=== PATIENT | female | born 1970 | race Caucasian/White ===

== ENCOUNTER 2024-08-06 18:46 | Emergency (ER) | payer BC, SELFPAY ==
[2024-08-06 18:50] VITALS: BP 130/89
[2024-08-06 19:15] LABS: HCG, Serum Qualitative Screen Negative
[2024-08-06 19:19] LABS: ALT (SGPT) 35 U/L (0-35); AST (SGOT) 37 U/L (14-36); Albumin 4.9 g/dl (3.5-5.0); Alkaline Phosphatase 78 U/L (38-126); Blood Urea Nitrogen 29 mg/dl (7-17); Calcium 9.6 mg/dl (8.4-10.2); Carbon Dioxide 27 mmol/L (22-30); Chloride 104 mmol/L (98-107); Glucose 107 mg/dl (70-99); Potassium 4.4 mmol/L (3.5-5.1); Sodium 141 mmol/L (135-145); Total Bilirubin 0.3 mg/dl (0.2-1.3); Total Protein 7.4 g/dl (6.3-8.2); eGFR > 60.00
[2024-08-06 19:21] LABS: % Basophils 0.5 % (0-2); % Eosinophils 1.5 % (0-6); % Immature Granulocytes 0.5 % (0-0.5); % Monocytes 6.6 % (1.7-9.3); % Neutrophils 65.9 % (42.2-75.2); Absolute Eosinophils 0.1 10^3/uL (0-0.7); Absolute Lymphocytes 1.5 10^3/uL (1.2-3.4); Absolute Monocytes 0.4 10^3/uL (0.1-0.6); Absolute Neutrophils 3.9 10^3/uL (1.4-6.5); Hematocrit 42.5 % (37.0-47.0); Hemoglobin 14.3 g/dL (12.0-16.0); Mean Corp Hgb Conc. 33.6 g/dL (33.0-37.0); Mean Corpuscular Hgb 29.9 pg (27.0-31.0); Mean Corpuscular Volume 88.7 fL (81.0-99.0); Mean Platelet Volume 10.8 fL (7.4-10.4); Nucleated Red Blood Cells % 0 %; Platelet Count 184 10^3/uL (130-400); Red Blood Cell Count 4.79 10^6/uL (4.20-5.40); Red Cell Dist. Width 13.5 % (11.5-14.5); White Blood Cell Count 5.9 10^3/uL (4.8-10.8)
[2024-08-06 20:35] VITALS: BMI 25.0
[2024-08-06 20:36] VITALS: BP 107/83
--- NOTE | 2024-08-06 21:02 | ED.GENMED ---
History of Present Illness
General
Chief Complaint: Vaginal Bleeding
Source: patient and spouse
Time Seen by Provider: 08/06/24 20:28
History of Present Illness
History of Present Illness:
53-year-old female who presents with bleeding. She states she has not had a period in 3 years and prior to that she had had an ablation so had only minimal periods. Today she became nervous when she started to bleed. She states it is a little
heavier than a normal period but states it is under control. She has a little bit of cramping but otherwise no pain. No fevers. No other symptoms states she just became concerned.
Past History
Past History
ED Past Medical History: Hypothyroidism
ED Past Surgical History: Appendectomy, and Orthopedic
Phy Exam
Physical Exam
Physical Exam:
CONSTITUTIONAL Patient alert and oriented to person, place and time. Well-appearing. Vital signs reviewed.
HEAD atraumatic, normocephalic.
EYES eyelids normal to inspection, Extraocular muscles intact, Conjunctiva normal, Sclera normal.
NECK normal range of motion, Trachea midline, no jugular venous distention.
RESPIRATORY CHEST No respiratory distress noted, Chest expansion equal
ABDOMEN minimal suprapubic tenderness, bowel sounds normal. No distention.
BACK normal inspection, no obvious deformities
UPPER EXTREMITY range of motion normal, Motor strength normal, no cyanosis, no edema.
LOWER EXTREMITY range of motion normal, Motor strength normal, no cyanosis, no edema.
NEURO Speech normal, No focal motor deficits, Onofre coma scale 15, Memory normal, Cranial Nerves intact to screening exam.
SKIN skin warm, dry, and normal in color.
PSYCHIATRIC patient oriented to person place and time, Normal affect.
Course
Orders/Labs/Results
Orders:
Orders
08/06/24 18:54
Test Result ONCE
08/06/24 18:56
US Pelvis W Transvag Combined Urgent
Reason For Exam: vaginal bleeding, PMB
08/06/24 18:58
Type+Screen Urgent
Beta Hcg Serum Qualitative Screen [HCG, Serum Qualitative Screen] Urgent
Complete Blood Count/With Diff Urgent
Comprehensive Metabolic Panel Urgent
Abnormal Lab Results
08/06/24
18:58
MPV 10.8 H fL
(7.4-10.4)
BUN 29 H mg/dl
(7-17)
Glucose 107 H mg/dl
(70-99)
AST 37 H U/L
(14-36)
08/06/24 18:58
08/06/24 18:58
Vital Signs
Initial and Last Documented VS:
Initial Vital Signs
Temp Pulse Resp BP Pulse Ox
98.5 F 75 18 130/89 98
08/06/24 18:50 08/06/24 18:50 08/06/24 18:50 08/06/24 18:50 08/06/24 18:50
Last Documented Vital Signs
Temp Pulse Resp BP Pulse Ox
98.5 F 64 18 107/83 98
08/06/24 18:50 08/06/24 20:35 08/06/24 20:35 08/06/24 20:36 08/06/24 20:35
MDM/Problems Addressed
MDM/Problems Addressed:
Postmenopausal bleeding
*Radiology
Radiology exam reviewed: radiology read reviewed
*Pulse Oximetry
Patient hypoxic: no
*Critical Care Note
Total Time (30-74mins, 75-104mins- exclusive of procedures): Not Applicable
Data Reviewed
Source: patient and spouse
Prescriptions/Medications Considered But Not Given:
Consider progesterone but will hold off. Hemoglobin okay today's first day of bleeding. Advise follow-up with her medical imaging tech
Patient Management
Escalation/DeEscalation of care consider admission/obs:
Stable. Needs outpatient follow-up given bleeding. Ultrasound is reassuring as endometrial stripe is reported as 2 mm
ED Attending Note
-
Portions of this chart may have been created with voice recognition software.� Occasional wrong word or��sound alike� substitutions may have occurred due to the inherent limitations of voice recognition software.
Discharge Plan
Departure
Patient Disposition: Home (Routine Discharge)
Date of Disposition: 08/06/24
Time of Disposition: 21:02
Patient with high blood pressure during this ER visit?: No
Discharge Problem:
Abnormal vaginal bleeding
Instructions: Bleeding After Menopause
Activity Restrictions/Additional Instructions:
Please see your medical imaging tech in follow-up in the next 1 week. Return today for lightheadedness, passing out episode, weakness of any kind, heavy bleeding or any other concerns.
Interventions
Interventions:
*Risk Screen - Suicide Last Done: 08/06/24 18:50
*General Assessment Last Done: 08/06/24 18:50
*Neglect/Abuse Screening Last Done: 08/06/24 18:50
*ED COVID-19 Vaccine History Last Done: 08/06/24 18:50
ED-Female Genitourinary Assessment Last Done: 08/06/24 20:36
Discharge Date and Time
Print Language: SERBIAN
== END 2024-08-06 21:13 | disposition home or self-care (01) ==
LOC: EMR 18:46
PROVIDERS: Emergency Medicine; EMERGENCY PHYSICIAN Emergency Medicine; FAMILY PHYSICIAN Internal Medicine
DX: N95.0 Postmenopausal bleeding (principal); E03.9 Hypothyroidism, unspecified; Z90.49 Acquired absence of other specified parts of digestive tract
CPT/HCPCS: 99284; 76830; 76856; 80053; 84703; 85025; 86850; 86900; 86901

== ENCOUNTER → 2024-09-04 06:29 | Day surgery (SDC) | payer BC, SELFPAY ==
[2024-09-03 09:09] LABS: % Basophils 1.1 % (0-2); % Eosinophils 2.5 % (0-6); % Lymphocytes 33.8 % (20.5-51.1); % Monocytes 10.2 % (1.7-9.3); % Neutrophils 52.4 % (42.2-75.2); Absolute Eosinophils 0.1 10^3/uL (0-0.7); Absolute Monocytes 0.3 10^3/uL (0.1-0.6); Absolute Neutrophils 1.5 10^3/uL (1.4-6.5); Hematocrit 43.4 % (37.0-47.0); Hemoglobin 13.8 g/dL (12.0-16.0); Mean Corp Hgb Conc. 31.8 g/dL (33.0-37.0); Mean Corpuscular Hgb 30.3 pg (27.0-31.0); Mean Corpuscular Volume 95.2 fL (81.0-99.0); Mean Platelet Volume 11.3 fL (7.4-10.4); Nucleated Red Blood Cells % 0 %; Platelet Count 149 10^3/uL (130-400); Red Blood Cell Count 4.56 10^6/uL (4.20-5.40); Red Cell Dist. Width 13.8 % (11.5-14.5); White Blood Cell Count 2.8 10^3/uL (4.8-10.8)
[2024-09-03 09:25] LABS: Blood Urea Nitrogen 19 mg/dl (7-17); Calcium 9.7 mg/dl (8.4-10.2); Carbon Dioxide 27 mmol/L (22-30); Chloride 105 mmol/L (98-107); Glucose 95 mg/dl (70-99); Potassium 4.9 mmol/L (3.5-5.1); Sodium 142 mmol/L (135-145); eGFR > 60.00
[2024-09-03 10:52] VITALS: BMI 24.7
--- NOTE | 2024-09-03 15:13 | PTCARENOTE ---
Patients 09/03 WBC 2.9- Leah @ Dr Jacobo office notified
[2024-09-04] VITALS (9 sets, daily range): BP systolic 97–125; BP diastolic 62–83; BMI 24.7
[2024-09-04] MEDS: TYLENOL 1000 MG PO (08:38)
== END ==
LOC: SDS 06:29
PROVIDERS: ATTENDING PHYSICIAN Obstetrics & Gynecology; FAMILY PHYSICIAN Internal Medicine
DX: N95.0 Postmenopausal bleeding (principal)
CPT/HCPCS: 58558; 88305; 36415; 80048; 85025; 86850; 86900; 86901

== ENCOUNTER → 2024-10-23 07:31 | Outpatient (REF) | payer BC, SELFPAY | LOC: MRI 07:31 | PROVIDERS: ATTENDING PHYSICIAN Obstetrics & Gynecology Gynecologic Oncology; FAMILY PHYSICIAN Internal Medicine | DX: N95.0 Postmenopausal bleeding (principal); D72.819 Decreased white blood cell count, unspecified | CPT/HCPCS: 72197; A9575 ==

== ENCOUNTER → 2025-01-21 11:36 | Outpatient (REF) | payer BC, SELFPAY ==
[2025-01-21 12:25] LABS: % Basophils 1.2 % (0-2); % Immature Granulocytes 0.3 % (0-0.5); % Monocytes 8.7 % (1.7-9.3); % Neutrophils 58.8 % (42.2-75.2); Absolute Eosinophils 0.1 10^3/uL (0-0.7); Absolute Monocytes 0.3 10^3/uL (0.1-0.6); Hematocrit 43.8 % (37.0-47.0); Hemoglobin 14.3 g/dL (12.0-16.0); Mean Corp Hgb Conc. 32.6 g/dL (33.0-37.0); Mean Corpuscular Hgb 30.4 pg (27.0-31.0); Mean Corpuscular Volume 93.2 fL (81.0-99.0); Nucleated Red Blood Cells % 0 %; Platelet Count 159 10^3/uL (130-400); Red Cell Dist. Width 12.6 % (11.5-14.5); White Blood Cell Count 3.5 10^3/uL (4.8-10.8)
[2025-01-21 12:51] LABS: ALT (SGPT) 30 U/L (0-35); AST (SGOT) 32 U/L (14-36); Albumin 4.8 g/dl (3.5-5.0); Alkaline Phosphatase 90 U/L (38-126); Blood Urea Nitrogen 23 mg/dl (7-17); Carbon Dioxide 30 mmol/L (22-30); Chloride 104 mmol/L (98-107); Glucose 99 mg/dl (70-99); Potassium 4.4 mmol/L (3.5-5.1); Sodium 143 mmol/L (135-145); Total Bilirubin 0.6 mg/dl (0.2-1.3); Total Protein 7.3 g/dl (6.3-8.2); eGFR > 60.00
[2025-01-21 13:20] LABS: TSH Reflex To Free T4 0.08 uIU/ml (0.47-4.68)
[2025-01-21 13:57] LABS: Free T4 1.73 ng/dl (0.78-2.19)
== END ==
LOC: REG 11:36
PROVIDERS: ATTENDING PHYSICIAN Nurse Practitioner Adult Health; OTHER PHYSICIAN Obstetrics & Gynecology Gynecologic Oncology
DX: Z01.818 Encounter for other preprocedural examination (principal)
CPT/HCPCS: 36415; 80053; 84439; 84443; 85025; 93005

== ENCOUNTER 2025-01-27 06:29 | Day surgery (SDC) | payer BC, SELFPAY ==
--- NOTE | 2025-01-26 06:42 | W.CON.GYNONC ---
Chief Complaint
-
N/A
History of Present Illness
54�yo��woman�referred�to�me�by�Dr�Defour.�She�has�a�history�of�endometrial�ablation�many�years�ago.�She�has�been having�light�but�monthly�menses�up�to�2021.�In�October�2024�she�had�an�episode�of�heavy�bleeding�lasting�1�day.�She�has�had
some�spotting�after�that.�Endometrial�biopsy�was�attempted�in�the�office�however�was�unsuccessful,�pelvic�ultrasound�had�been
performed�at�[place]�10�16�24�revealing�uterus�to�be�7.4�cm,�fibroids�cannot�be�excluded,�endometrial�stripe�was�2�mm,�right ovary�is�2.1�cm�and�left�ovary�is�1.9�cm�with�prominent�vessels�in�the�left�pelvis.�
Pap�smear�dated�Dipti�1�was�negative�for�intraepithelial�lesion�or�malignancy,�high�risk�HPV�test�was�negative Due�to�this�patient�was�taken�to�the�operating�room�for�an�attempted�D&C�hysteroscopy�on�November�,�a�tubal�ostia�was
not�visualized,�areas�of�scarred�likely�prior�ablation�was�noted.�Specimen�that�was�obtained�was�nondiagnostic�and�shows�blood and�rare�strips�of�unremarkable�squamous�mucosa.
Patient�had�an�MRI�of�pelvis�Lore�2,�cervix�is�without�any�abnormality�both�ovaries�are�normal,�prominent�parametrial�vessels�are
seen�bilaterally,�small�amount�of�free�fluid�is�noted�in�the�cul�de�sac.�Endometrium�is�not�perceptible�at�about�1�mm�compatible�with history�of�endometrial�ablation
Past�medical�history�significant�for�thyroid�disease�including�Melony's�thyroiditis. Past�obstetrical�history�significant�for�,�followed�2�prior�C�section,�also�had�a�loss�due�to�cystic�hygroma�for�which�she�had D&C.
Past�surgical�history�significant�for�abdominoplasty,�breast�augmentation,�C�section�as�noted�above,�tubal�ligation�and�endometrial ablation. Family�history�is�maternal�grandmother�with�colon�cancer
Medical History
Allergies
Allergies reflect when allergies were last updated in [facility].
cephalexin monohydrate [From Keflex] Allergy (Verified 01/22/25 14:26)
Hives
Cephalosporins Allergy (Verified 01/22/25 14:26)
Hives
gentamicin [Gentamicin] Allergy (Verified 01/22/25 14:26)
Hives
penicillin G Allergy (Verified 01/22/25 14:26)
Hives
Penicillins Allergy (Verified 01/22/25 14:26)
Hives
prochlorperazine edisylate [From Compazine] Allergy (Verified 01/22/25 14:26)
catatonic
prochlorperazine maleate [From Compazine] Allergy (Verified 01/22/25 14:26)
catatonic
sulfamethoxazole [From Bactrim] Allergy (Verified 01/22/25 14:26)
Hives
trimethoprim [From Bactrim] Allergy (Verified 01/22/25 14:26)
Unknown
Physical Exam
Physical Exam
Pelvic�Examination: External�normal�labia,�urethra,�anus.� Vagina:�Normal�mucosa.� Cervix:�normal�appearance,�no�discharge.� Uterus:�normal�size.� Adnexa:�No�pelvic�mass.� RVE:�no�masses�or�nodularity
General:�Well�developed,�well�nourished�patient.�In�no�acute�distress. Neck:�No�thyromegaly.�No�cervical�lymphadenopathy. Lungs:�Clear�to�auscultation.�Good�air�movement�bilaterally. Cardiac:�Regular�rate.�Regular�rhythm.�No�murmurs�appreciated.
Right�Breast:�No�masses�or�dimpling.�No�nipple�discharge. Left�Breast:�No�masses�or�dimpling.�No�nipple�discharge. Abdomen:�Abdomen�is�soft.�Non�tender�to�palpation.�Non�distended.
Low�transverse�abdominoplasty�scar�well�healed,�umbilical�scar�present Extremities:�No�edema. Hematologic/Lymphatic:�No�palpable�lymphadenopathy. Musculoskeletal:�Normal�range�of�motion.�Strength�and�Tone�are�normal.
Skin:Non�jaundiced.�No�petechia.�No�purpura. Neurologic:�Speech�is�fluent.�Normal�gait�and�station.�Cranial�nerves�intact.
Impression / Plan
-
She�has�had�an�episode�of�bleeding�at�age�54.�Her�workup�was�appropriate�including�exam�,�Pap�smear�which�was�normal,�and attempted�dilation�and�curettage�however�it�was�expected�that�the�endometrial�curettage�would�not�result�in�adequate�sample
because�of�prior�history�of�endometrial�ablation.�I�educated�her�that�typically�after�this�procedure�access�to�endometrial�cavity�is
somewhat�challenging�and�difficult�and�it�is�unlikely�that�an�adequate�sample�of�endometrium�can�be�obtained.�Most�likely�the
clinical�scenario�is�that�the�patient�has�had�some�residual�estrogen�production�that�might�have�resulted�in�buildup�of�endometrium and�she�had�essentially�a�shedding�episode.�
Further�evaluation�with�MRI�shows�no�significant�abnormalities.�Labs�reveal�FSH�elevated�at�88�indicative�of�menopause, There�is�no�other�abnormalities�present.
It�is�reassuring�to�see�that�the�patient�has�not�had�any�further�episode�of�bleeding.�We�discussed�options�of�proceeding�with�surgery
for�definitive�management�to�remove�uterus�cervix�bilateral�tubes�and�ovaries,�or�continue�observation.�Risks�of�procedure�including
infection�bleeding�injury�to�adjacent�organs�DVT�pulmonary�embolism�and�cardiovascular�complications�were�discussed�and reviewed.
Her�surgery�has�been�tentatively�scheduled�for�Mattie�8�for�robotic�assisted�total�laparoscopic�hysterectomy�bilateral�salpingooophorectomy. I�have�requested�that�she�obtains�medical�clearance�from�primary�care�physician
[2025-01-27] VITALS (10 sets, daily range): BP systolic 103–126; BP diastolic 45–86; BMI 24.7
[2025-01-27] MEDS: TYLENOL 1000 MG PO (11:33)
[2025-01-27] MEDS: NEURONTIN 300 MG PO (11:33)
[2025-01-27] MEDS: CELEBREX 200 MG PO (11:33)
[2025-01-27] MEDS: VANCOCIN 200 IV (12:00)
[2025-01-27] MEDS: NORMOSOL-R/PLASMALYTE-A 1000 IV (12:00)
[2025-01-27] MEDS: TRANSDERM-SCOP 1 PATCH TRANSDERM (12:20)
--- NOTE | 2025-01-27 12:57 | PTCARENOTE ---
Patient taken to the OR without getting sign out from the nurse. Patients Heparin not given prior to sending the patient to the OR because no notification was sent to SDS reporting manager that they were calling for patient. Heparin handed to the OR employee
so that the Heparin could be given in the OR. Td POOLE notified.
== END 2025-01-27 16:58 | disposition home or self-care (01) ==
LOC: SDS 06:29
PROVIDERS: ATTENDING PHYSICIAN Obstetrics & Gynecology Gynecologic Oncology; FAMILY PHYSICIAN Internal Medicine
DX: N80.03 Adenomyosis of the uterus (principal); N95.0 Postmenopausal bleeding; Z98.890 Other specified postprocedural states
CPT/HCPCS: 58571; 38500; 88305; 88307; 88112; 88342

== ENCOUNTER 2025-02-04 19:59 | Inpatient (IN) | payer BC, SELFPAY ==
[2025-02-04 12:20] VITALS: BMI 25.7
[2025-02-04 12:24] VITALS: BP 136/88
[2025-02-04] MEDS: OMNIPAQUE 50 ML PO (13:06)
[2025-02-04 13:15] LABS: % Basophils 0.3 % (0-2); % Eosinophils 1.4 % (0-6); % Immature Granulocytes 0.3 % (0-0.5); % Lymphocytes 9.7 % (20.5-51.1); % Neutrophils 80.3 % (42.2-75.2); Absolute Eosinophils 0.1 10^3/uL (0-0.7); Absolute Lymphocytes 0.6 10^3/uL (1.2-3.4); Absolute Monocytes 0.5 10^3/uL (0.1-0.6); Absolute Neutrophils 5.3 10^3/uL (1.4-6.5); Hemoglobin 12.8 g/dL (12.0-16.0); Mean Corp Hgb Conc. 33.7 g/dL (33.0-37.0); Mean Corpuscular Hgb 30.5 pg (27.0-31.0); Mean Corpuscular Volume 90.5 fL (81.0-99.0); Mean Platelet Volume 11.2 fL (7.4-10.4); Nucleated Red Blood Cells % 0 %; Platelet Count 154 10^3/uL (130-400); Red Cell Dist. Width 12.5 % (11.5-14.5); Urine Albumin 1+ (Neg - Trace); Urine Bilirubin Negative (Negative); Urine Character Clear (Clear); Urine Color Yellow; Urine Glucose Negative (Negative); Urine Ketone Negative (Negative); Urine Leukocyte 2+ (Negative); Urine Nitrite Negative (Negative); Urine Occult Blood 4+ (Negative); Urine Urobilinogen Negative (Neg - 1+); White Blood Cell Count 6.6 10^3/uL (4.8-10.8)
[2025-02-04 13:29] LABS: ALT (SGPT) 41 U/L (0-35); AST (SGOT) 32 U/L (14-36); Albumin 3.6 g/dl (3.5-5.0); Alkaline Phosphatase 81 U/L (38-126); Blood Urea Nitrogen 19 mg/dl (7-17); Calcium 9.5 mg/dl (8.4-10.2); Carbon Dioxide 25 mmol/L (22-30); Chloride 106 mmol/L (98-107); Estimated Creatinine Clearance 86 ml/min; Glucose 109 mg/dl (70-99); Lipase 95 U/L (23-300); Potassium 4.1 mmol/L (3.5-5.1); Sodium 139 mmol/L (135-145); Total Bilirubin 0.7 mg/dl (0.2-1.3); Total Protein 6.3 g/dl (6.3-8.2); eGFR > 60.00
--- NOTE | 2025-02-04 13:32 | ED.GENMED ---
History of Present Illness
General
Chief Complaint: Post Operative Problem(s)
Source: patient
Time Seen by Provider: 02/04/25 13:16
History of Present Illness
History of Present Illness:
54-year-old female presents to the emergency room complaining of abdominal pain. Patient is postop day 8 from a laparoscopic assisted hysterectomy and bilateral salpingo-oophorectomy. Patient has been experiencing spasmodic type abdominal pain.
Symptoms have not improved since surgery. When she has a spasm of pain she describes it as quite severe and rates it a 10 out of 10. Episodes vary in length. She is tolerating oral intake. She has no nausea or vomiting. She is having normal
bowel movements. She denies any dysuria or frequency at this point. She has not had a fever. Patient communicated with Dr. Torres who did her surgery and he recommended she come to the emergency room for evaluation. She passed a small amount of
blood vaginally today.
Past History
Past History
ED Past Medical History: Hypothyroidism
ED Past Surgical History: Appendectomy, and Orthopedic
Phy Exam
Physical Exam
Physical Exam:
General: Awake, Alert, Oriented X3. No acute distress.
Vitals: unremarkable
Head: Atraumatic
Eyes: Pupils equal, EOMI
Throat: Airway intact, no exudates
Neck: Trachea midline
Lungs: Clear and equal b/l
Heart: Regular rate, no murmurs
Abd: Soft, mildly distended, fairly tender to palpation, mod pain with percussion, laparoscope incisions are intact and dry without erythema
Neuro: Nonfocal
Skin: Warm, dry, no rash
Extremities: pulses equal b/l, no edema
Course
Orders/Labs/Results
Orders:
Orders
02/04/25 13:01
Iohexol [Omnipaque] 50 ml .ROUTE .[facility]
02/04/25 13:04
Complete Blood Count/With Diff Urgent
Comprehensive Metabolic Panel Urgent
Lipase Urgent
Urinalysis Reflex To Culture Urgent
Date Specimen was Collected: 02/04/25
Time Specimen was Collected: 13:00
Urine Microscopic Reflex Cult Urgent
Urine Culture Urgent
CHANDRIKA Source: U
Specimen Description:
Date Specimen was Collected: 02/04/25
Time Specimen was Collected: 13:00
02/04/25 13:05
Iohexol [Omnipaque] See Protocol PO NOW STA
02/04/25 13:19
CT Abd/pel W Iv And Oral Contr Urgent
Comment:
Reason For Exam: abd pain POD #8 lab hyster b/l spo
02/04/25 13:32
0.9% Sodium Chloride 1000 ml [Nss] 1,000 ml IV BOLUS
02/04/25 16:23
LevoFLOXacin 750 MG/150 ML [Levaquin] 750 mg in 150 ml IV NOW
02/04/25 16:53
MetroNIDAZOLE 500 MG/100 ML [Flagyl 500 mg] 100 ml IV NOW
02/04/25 17:14
Ketorolac [Toradol] 30 mg .ROUTE .[facility]-MED ONE
02/04/25 17:17
Ketorolac [Toradol] 30 mg IV NOW STA
02/04/25 17:26
Lorazepam [Ativan] 1 mg PO NOW STA
02/04/25 18:56
HYDROmorphone [Dilaudid] 0.5 mg IV Q2HPRN PRN
02/04/25 19:00
0.9% Sodium Chloride 1000 ml [Nss] 1,000 ml IV 100 mls/hr
02/05/25 00:00
Ibuprofen [Motrin] 400 mg PO Q6HPRN PRN
Abnormal Lab Results
02/04/25
13:04
MPV 11.2 H fL
(7.4-10.4)
Absolute Lymphs (auto) 0.6 L 10^3/uL
(1.2-3.4)
Neutrophils % 80.3 H %
(42.2-75.2)
Lymphocytes % 9.7 L %
(20.5-51.1)
BUN 19 H mg/dl
(7-17)
Glucose 109 H mg/dl
(70-99)
ALT 41 H U/L
(0-35)
Ur Occult Blood Reflex 4+ A
(Negative)
Leukocyte Esterase Rfl 2+ A
(Negative)
Urine WBC (Reflex) 21-25 A /HPF
(0-5)
Urine Bacteria (Reflex) Few A
(Negative)
Urine Albumin (Reflex) 1+ A
(Neg - Trace)
02/04/25 13:04
02/04/25 13:04
Vital Signs
Initial and Last Documented VS:
Initial Vital Signs
Temp Pulse Resp BP Pulse Ox
98.2 F 83 16 136/88 98
02/04/25 12:24 02/04/25 12:24 02/04/25 12:24 02/04/25 12:24 02/04/25 12:24
Last Documented Vital Signs
Temp Pulse Resp BP Pulse Ox
99.1 F 72 16 122/74 99
02/04/25 18:00 02/04/25 18:00 02/04/25 18:00 02/04/25 16:00 02/04/25 18:00
MDM/Problems Addressed
Differential Diagnosis Includes:
Bowel obstruction, postop bleeding, abscess or collection, postop ileus
MDM/Problems Addressed:
Patient presents with fairly significant abdominal pain particular palpation. Labs are unremarkable. CT shows postoperative changes and perhaps mild wall thickening of the rectum, sigmoid and descending colon. Patient reevaluated and noted to
have a temperature of 100.4. Case discussed with Dr. Smith. Ultimately he came to the emergency room to evaluate the patient. Will hospitalize her under his service with IV antibiotics. Patient will also be seen by colorectal surgery.
*Radiology
Radiology exam reviewed: radiology read reviewed
*Pulse Oximetry
Patient hypoxic: no
*Critical Care Note
Total Time (30-74mins, 75-104mins- exclusive of procedures): Not Applicable
ED Attending Note
-
Portions of this chart may have been created with voice recognition software.� Occasional wrong word or��sound alike� substitutions may have occurred due to the inherent limitations of voice recognition software.
Discharge Plan
Departure
Patient Disposition: Admit
Date of Disposition: 02/04/25
Time of Disposition: 17:08
Presentation/result/management discussed w/ accepting MD/DO: Dr. Torres
Condition: Fair
Discharge Problem:
Acute postoperative abdominal pain
Prescriptions:
No Action
levothyroxine [Synthroid] 100 mcg Tablet
100 mcg PO DAILY
ibuprofen [Advil] 200 mg Tablet
600 mg PO Q6HPRN PRN (Reason: mild pain)
acetaminophen [Tylenol Extra Strength] 500 mg Tablet
1,000 mg PO Q6HPRN PRN (Reason: mild pain)
triamcinolone acetonide 0.1 % Cream
1 applic TOPICAL DAILYPRN PRN (Reason: antibiotic welts)
diphenhydramine HCl [Benadryl] 25 mg Capsule
25 mg PO HSPRN PRN (Reason: antibiotic welts)
Referrals:
Maverick Freire DO [Family Provider] -
Interventions
Interventions:
*Risk Screen - Suicide Last Done: 02/04/25 12:24
*General Assessment Last Done: 02/04/25 12:55
*Neglect/Abuse Screening Last Done: 02/04/25 12:24
*ED- Fall Risk Assessment Last Done: 02/04/25 12:55
ED-Skin Assessment Last Done: 02/04/25 17:20
Discharge Date and Time
Print Language: KISWAHILI
[2025-02-04 13:35] LABS: Urine Squamous Cell >30 /LPF (Few)
[2025-02-04 13:36] LABS: Urine Bacteria Few (Negative); Urine Red Blood Cell 0-2 /HPF (0-2); Urine White Cell 21-25 /HPF (0-5)
[2025-02-04] MEDS: NSS 1000 IV ×2 (13:40→22:15)
[2025-02-04 14:00] VITALS: BP 122/74
[2025-02-04 16:00] VITALS: BP 122/74
[2025-02-04] MEDS: LEVAQUIN 150 IV (16:25)
[2025-02-04] MEDS: FLAGYL 500 MG 100 IV (17:15)
[2025-02-04] MEDS: TORADOL 30 MG IV ×2 (17:18→23:31)
[2025-02-04 20:00] VITALS: BP 118/74
[2025-02-04 21:08] VITALS: BMI 24.7
[2025-02-04 21:09] VITALS: BP 146/85
--- NOTE | 2025-02-04 22:11 | CON.CRS ---
Medical History
-
History of Present Illness:
Patient is a 54-year-old female with PMH of hypothyroidism who underwent a robotic DANIEL/BSO and pelvic lymph node dissection with Dr. Torres 1 week ago. Postoperatively she did well and was discharged. However, she continued having abdominal pains
described as spasms. These were intermittent. Some days were worse than others, but would get as bad as a 10 out of 10. She noticed that they were worse before bowel movements and improved after the bowel movement. She has not had much change in
her bowel habits. Denies any constipation, diarrhea or hematochezia. She has also been fatigued, but her appetite has been good. She denies dysuria. Her last colonoscopy was 11/[address] Delvalle, which showed 4 tubular adenomas and
hemorrhoids. Due to the worsening abdominal pain, she presented to the ED. In the ED, her WBC was 6.6. She was afebrile and vitals within normal limits. A CT scan was done which showed postoperative changes as well as colitis from the rectum to
the descending colon. No hydronephrosis.
Past Medical History
Past Medical History: Hypothyroidism
Past Surgical History: Other (Endometrial ablation, x 2, D&C, breast augmentation s/p multiple redo's, abdominoplasty, right ankle, back surgery, BTL, appendectomy)
Family History
Family History: Reviewed & Not Pertinent
Allergies / Home Medications
Allergy/AdvReac Type Severity Reaction Status Date / Time
cephalexin monohydrate Allergy Hives Verified 02/04/25 12:26
[From Keflex]
Cephalosporins Allergy Hives Verified 02/04/25 12:26
gentamicin [Gentamicin] Allergy Hives Verified 02/04/25 12:26
penicillin G Allergy Hives Verified 02/04/25 12:26
Penicillins Allergy Hives Verified 02/04/25 12:26
prochlorperazine edisylate Allergy catatonic Verified 02/04/25 12:26
[From Compazine]
prochlorperazine maleate Allergy catatonic Verified 02/04/25 12:26
[From Compazine]
sulfamethoxazole Allergy Hives Verified 02/04/25 12:26
[From Bactrim]
trimethoprim [From Bactrim] Allergy Unknown Verified 02/04/25 12:26
�Medication �Instructions �Recorded �Confirmed �Type
levothyroxine 100 mcg tablet 100 mcg PO DAILY 09/03/24 02/04/25 History
(Synthroid)
ibuprofen 200 mg tablet (Advil) 600 mg PO Q6HPRN PRN mild pain 01/22/25 02/04/25 History
acetaminophen 500 mg tablet 1,000 mg PO Q6HPRN PRN mild pain 01/27/25 02/04/25 History
(Tylenol Extra Strength)
diphenhydramine HCl 25 mg capsule 25 mg PO HSPRN PRN antibiotic welts 02/04/25 02/04/25 History
(Benadryl)
triamcinolone acetonide 0.1 % 1 applic topical DAILYPRN PRN 02/04/25 02/04/25 History
topical cream antibiotic welts
Review of Systems
-
A 10 point review of systems was completed, and was negative except as per HPI.
Physical Exam
Vital Signs
Temp 99.8 F 02/04/25 21:09
Pulse 91 02/04/25 21:09
Resp Rate 16 02/04/25 20:00
Blood pressure 146/85 02/04/25 21:09
SaO2 100 02/04/25 21:09
02/03/25 02/04/25 02/05/25
06:59 06:59 06:59
Actual Weight 61.235 kg
Body Mass Index (BMI) 24.7
Lab Results / Allergies
02/04/25 13:04
02/04/25 13:04
WBC 6.6 10^3/uL (4.8-10.8) 02/04/25 13:04
Hgb 12.8 g/dL (12.0-16.0) 02/04/25 13:04
Hct 38.0 % (37.0-47.0) 02/04/25 13:04
Plt Count 154 10^3/uL (130-400) 02/04/25 13:04
Abs Immat Gran (auto) 0.0 10^3/uL (0-0.05) 02/04/25 13:04
Neutrophils % 80.3 % (42.2-75.2) H 02/04/25 13:04
Allergy/AdvReac Type Severity Reaction Status Date / Time
cephalexin monohydrate Allergy Hives Verified 02/04/25 12:26
[From Keflex]
Cephalosporins Allergy Hives Verified 02/04/25 12:26
gentamicin [Gentamicin] Allergy Hives Verified 02/04/25 12:26
penicillin G Allergy Hives Verified 02/04/25 12:26
Penicillins Allergy Hives Verified 02/04/25 12:26
prochlorperazine edisylate Allergy catatonic Verified 02/04/25 12:26
[From Compazine]
prochlorperazine maleate Allergy catatonic Verified 02/04/25 12:26
[From Compazine]
sulfamethoxazole Allergy Hives Verified 02/04/25 12:26
[From Bactrim]
trimethoprim [From Bactrim] Allergy Unknown Verified 02/04/25 12:26
Physical Exam
General: Well Developed, Well Nourished and No Apparent Distress
HEENT: Normocephalic and Atraumatic
Respiratory: Non Labored Respirations
GI: Soft, Non Distended, Tender (Mildly to moderately tender in the LLQ, radiating towards the suprapubic to RLQ, no rebound or guarding) and Other (Incisions well-approximated without erythema or drainage, Dermabond still intact)
Skin: Warm and Dry
Neuro: AO x 3
Data Reviewed
-
CT Scan: Image Personally Visualized and interpreted, Discussed with Physician (Dr. Torres) and Discussed with Patient
Labs: Labs Reviewed by me and Discussed with Patient
Assessment / Plan
-
54-year-old female with PMH of hypothyroidism who underwent a robotic DANIEL/BSO and pelvic lymph node dissection with Dr. Torres 1 week ago. She presents with worsening intermittent lower abdominal pain, without change in bowels, hematochezia or
dysuria. Her last colonoscopy was 11/[address] Delvalle, which showed 4 tubular adenomas and hemorrhoids.Her WBC was 6.6. She was afebrile and vitals within normal limits. A CT scan was done which showed postoperative changes as well as colitis
from the rectum to the descending colon. No hydronephrosis.
� Left-sided colitis s/p robotic hysterectomy�differential includes reactive, infectious, or inflammatory, less likely is ischemic
�No acute surgical intervention colorectal standpoint
�Discussed with Dr. Torres, who feels this is most likely vaginal cuff cellulitis; in this setting, reactive inflammation along the colorectum seems to make the most sense
�Will send stool studies with C. difficile to be thorough
-Recommend clears for bowel rest
� Agree with IV antibiotics for vaginal cuff cellulitis
� Care per [facility] and hospitalist
[2025-02-04 23:10] VITALS: BP 124/82
[2025-02-04] MEDS: MAXIPIME 2000 MG IV (23:19)
[2025-02-04] MEDS: STERILE WATER FOR INJECTION 10 ML IV (23:19)
[2025-02-04] MEDS: TYLENOL 650 MG PO (23:20)
[2025-02-04] MEDS: BENADRYL 50 MG IV (23:20)
--- NOTE | 2025-02-05 01:23 | PTCARENOTE ---
Patient arrived from the ED via stretcher at approximately 2100. Patient ambulated self from stretcher to bed - gait steady. Patient AAOx3, drowsy. VSS as documented. Assessment as documented. Patient oriented to room. Bed in lowest position. Call
mann within reach.
[2025-02-05] MEDS: FLAGYL 500 MG 100 IV ×2 (03:19→09:11)
[2025-02-05] MEDS: TYLENOL 650 MG PO ×2 (06:12→12:31)
[2025-02-05 06:55] LABS: % Basophils 0.2 % (0-2); % Eosinophils 1.3 % (0-6); % Immature Granulocytes 0.4 % (0-0.5); % Lymphocytes 14.3 % (20.5-51.1); % Monocytes 7.5 % (1.7-9.3); % Neutrophils 76.3 % (42.2-75.2); Absolute Eosinophils 0.1 10^3/uL (0-0.7); Absolute Lymphocytes 0.7 10^3/uL (1.2-3.4); Absolute Monocytes 0.4 10^3/uL (0.1-0.6); Absolute Neutrophils 3.6 10^3/uL (1.4-6.5); Hematocrit 34.9 % (37.0-47.0); Hemoglobin 11.4 g/dL (12.0-16.0); Mean Corp Hgb Conc. 32.7 g/dL (33.0-37.0); Mean Corpuscular Volume 91.8 fL (81.0-99.0); Mean Platelet Volume 10.9 fL (7.4-10.4); Nucleated Red Blood Cells % 0 %; Platelet Count 141 10^3/uL (130-400); Red Cell Dist. Width 12.6 % (11.5-14.5); White Blood Cell Count 4.8 10^3/uL (4.8-10.8)
[2025-02-05 07:20] LABS: ALT (SGPT) 37 U/L (0-35); AST (SGOT) 28 U/L (14-36); Albumin 3.1 g/dl (3.5-5.0); Alkaline Phosphatase 66 U/L (38-126); Blood Urea Nitrogen 18 mg/dl (7-17); Calcium 8.8 mg/dl (8.4-10.2); Carbon Dioxide 23 mmol/L (22-30); Chloride 111 mmol/L (98-107); Estimated Creatinine Clearance 86 ml/min; Glucose 88 mg/dl (70-99); Potassium 4.2 mmol/L (3.5-5.1); Sodium 142 mmol/L (135-145); Total Bilirubin 0.6 mg/dl (0.2-1.3); Total Protein 5.4 g/dl (6.3-8.2); eGFR > 60.00
[2025-02-05 07:48] VITALS: BP 107/71
[2025-02-05] MEDS: NSS 1000 IV (09:10)
--- NOTE | 2025-02-05 09:14 | W.PN.GYNONC ---
Today's Communication
-
-
Impression / Plan
-
vaginal cuff cellulitis-
will continue IV antibiotics
advance diet
if continued improvement may be discharged later this afternoon
Subjective / Interval History
-
Admitted for IV antibiotics for vaginal cuff cellulitis, hospital day 1- feeling 100% better no fever, no pain used tylenol for headache. Denies any pain with gas and abdomen less distended denies any vaginal bleeding or discharge
Objective Data
-
Lab Results:
02/05/25 05:58
02/05/25 05:58
Physical Exam
Vital Signs / I&O
Vitals
Temp Pulse Resp BP Pulse Ox
98.4 F 77 17 107/71 98
02/05/25 07:48 02/05/25 07:48 02/05/25 07:48 02/05/25 07:48 02/05/25 07:48
I&O
02/03/25 02/04/25 02/05/25 02/06/25
06:59 06:59 06:59 06:59
Intake Total 1280 / 1280
Balance 1280 / 1280
Physical Exam
abdomen- port sites closed and no drainage
General: No Apparent Distress
Respiratory: Non Labored Respirations
GI: Soft, Non Tender and Non Distended
Data Reviewed
-
Lab Data: Labs Reviewed and Discussed with Physician
--- NOTE | 2025-02-05 10:17 | W.PN.CRS1 ---
Today's Communication / Plan
-
as below
Assessment/Plan
-
54-year-old female with PMH of hypothyroidism who underwent a robotic DANIEL/BSO and pelvic lymph node dissection with Dr. Torres 1 week ago. She presents with worsening intermittent lower abdominal pain, without change in bowels, hematochezia or
dysuria. Her last colonoscopy was 11/[address] Delvalle, which showed 4 tubular adenomas and hemorrhoids.Her WBC was 6.6. She was afebrile and vitals within normal limits. A CT scan was done which showed postoperative changes as well as colitis
from the rectum to the descending colon. No hydronephrosis.
�Care per Dr. Torres for vaginal cuff cellulitis, improving
� Left-sided colitis s/p robotic hysterectomy�differential includes reactive, infectious, or inflammatory, less likely is ischemic
�No acute surgical intervention colorectal standpoint
�Pending cdiff/stool cultures (no stool yet, therefore low suspicion; ok to cancel if no stool today)
�Can follow-up with me as outpatient to consider repeat colonoscopy
-Advance diet as tolerated
� Agree with IV antibiotics for vaginal cuff cellulitis, no antibiotics needed for the colitis
�Colorectal to sign off; please call for any questions or concerns; provided patient with my business card for follow-up
Subjective Data
Subjective Data
Date of Service: February 05, 2025
Feels significantly better, pain significantly improved. Passing flatus without spasms now.
Denies nausea or vomiting.
No BMs yet
Voiding
Objective Data
-
Vital Signs
Temp Pulse Resp BP Pulse Ox
98.4 F 77 17 107/71 98
02/05/25 07:48 02/05/25 07:48 02/05/25 07:48 02/05/25 07:48 02/05/25 07:48
Intake & Output
02/04/25 02/05/25 02/06/25
06:59 06:59 06:59
Intake Total 1280 / 1280
Balance 1280 / 1280
Intake:
Oral fluids 480 / 480
IV fluids (Total) 800 / 800
Other:
Number of unmeasured voidings 1
Number of approximated MODERATE 3
amounts of urine
Lab Results
02/05/25 05:58
02/05/25 05:58
Physical Exam
-
General: No Acute Distress and AOx3
HEENT: Grossly Normal
Abdomen: Soft, Non Distended, Tender (Mildly tender in the LLQ (improved)), No Guarding and No Rebound
Skin: Warm and Dry
Incision: Clear, Dry, Intact, No Skin Erythema and Other (Covered in Dermabond)
[2025-02-05] MEDS: STERILE WATER FOR INJECTION 10 ML IV (10:54)
[2025-02-05] MEDS: MAXIPIME 2000 MG IV (10:54)
--- NOTE | 2025-02-05 11:53 | CM ---
Met with pt at bedside
Initial assessment completed
Lives with in a 2 story home; [address], 18 steps to 2nd fl
Independent, Employed FT, drives
DME - denies past hx
SNF/HH -denies past hx
Has ride at d/c
PCP - Maverick Freire
Pharm - [facility]
Plan - anticipate home no needs
--- NOTE | 2025-02-05 12:48 | W.PN.UPDATE ---
Update Note
Progress Note Update
I spoke to patient just before this and note that she has been significantly better since admission to the hospital, she remains afebrile, her severe abdominal cramps have resolved and she has small amount of blood discharge per vagina. She was
able to tolerate diet without difficulty. I will go ahead and discharge her with plan to treat her on Levaquin and Flagyl for a total of 7 days. Discharge instructions were reviewed with the patient.
[2025-02-05 13:00] VITALS: BP 110/84
== END 2025-02-05 13:53 | disposition home or self-care (01) | DRG 392 ==
LOC: 2 NORTH 19:59
PROVIDERS: Emergency Medicine; ADMITTING PHYSICIAN Obstetrics & Gynecology Gynecologic Oncology; CONSULT PHYSICIAN Surgery; EMERGENCY PHYSICIAN Emergency Medicine; FAMILY PHYSICIAN Internal Medicine
DX: K52.9 Noninfective gastroenteritis and colitis, unspecified (principal); N73.0 Acute parametritis and pelvic cellulitis
CPT/HCPCS: 74177; 80053; 81003; 81015; 83690; 85025; 87086; 96361; 96365; 96367; 96375; 99285; Q9967

== ENCOUNTER → 2025-05-29 14:28 | Outpatient (REF) | payer BC, SELFPAY | LOC: RAD 14:28 | PROVIDERS: ATTENDING PHYSICIAN Obstetrics & Gynecology Gynecologic Oncology; FAMILY PHYSICIAN Internal Medicine | DX: R10.2 Pelvic and perineal pain (principal); R10.32 Left lower quadrant pain | CPT/HCPCS: 74177; Q9967 ==

== ENCOUNTER 2025-06-26 06:15 | Day surgery (SDC) | payer BC, SELFPAY ==
[2025-06-26] VITALS (10 sets, daily range): BP systolic 80–109; BP diastolic 53–76; BMI 24.9
[2025-06-26 12:55] LABS: Hematocrit 39.1 % (37.0-47.0); Hemoglobin 13.0 g/dL (12.0-16.0)
[2025-06-26] MEDS: NORMOSOL-R/PLASMALYTE-A 1000 IV (12:56)
[2025-06-26] MEDS: CELEBREX 200 MG PO (13:03)
[2025-06-26] MEDS: NEURONTIN 300 MG PO (13:03)
[2025-06-26] MEDS: TYLENOL 1000 MG PO (13:04)
[2025-06-26] MEDS: VIBRAMYCIN 260 MG IV (14:12)
[2025-06-26] MEDS: TRANSDERM-SCOP 1 PATCH TRANSDERM (14:41)
--- NOTE | 2025-06-26 16:39 | OR.RPT ---
Operative Report
Operative Report
Date of procedure: June 26, 2025
Preoperative diagnosis: Status post prior robotic assisted total laparoscopic hysterectomy now with vaginal lesion and pelvic pain
Postoperative diagnosis suspected vaginal granulation tissue
Procedure: Partial simple vaginectomy, mid vaginal apex
Surgeon:Terry Torres
Assist: Thai Juarez PA-C
Anesthesia: General LMA intubation
Estimated blood loss 10 cc
Complications: None
Specimen: Mid vaginal apex lesion
Procedure in detail: This patient was brought to the operating room as examination in the office was difficult and painful and intolerable. Upon arrival to the operating room she was placed in supine position, general anesthesia was administered,
LMA intubation was completed. She was placed in lithotomy position using yellowfin stirrups and prepped on the perineum and vagina lower abdomen and upper thighs. The patient was draped. Timeout procedure was completed she had received p.o.
doxycycline as she has multiple antibiotic allergies. I placed Tobias retractors on the anterior and posterior castillo of the vagina and performed the careful exam of all the vaginal tissue. There is a 1 x 1 cm granulation tissue at the mid vaginal
apex which is raised and has a thickness of about 1 cm. I went ahead and injected the surrounding tissue with 10 cc combine 1% lidocaine with epinephrine. I used electrocautery to perform partial upper vaginectomy and remove this lesion. There
was no injury to adjacent organs and there was no entry into the peritoneal cavity. I repaired this defect with a running suture of 3-0 Vicryl there was excellent hemostasis I then performed bimanual examination and there was no other palpable
abnormalities involving the upper vagina or right and left vaginal sidewall. The vagina was irrigated there was minimal blood loss all instruments were removed patient was awakened extubated and returned back to recovery room stable awake and
extubated condition. Counts of laps instruments and needle was correct x 2. I was present and scrubbed for entire procedure as dictated above
Disposition: To PACU stable awake and extubated
== END 2025-06-26 17:35 | disposition home or self-care (01) ==
LOC: SDS 06:15
PROVIDERS: ATTENDING PHYSICIAN Obstetrics & Gynecology Gynecologic Oncology
DX: N89.8 Other specified noninflammatory disorders of vagina (principal); Z90.710 Acquired absence of both cervix and uterus
CPT/HCPCS: 57106; 85014; 85018; 88305; 88341; 88365